=== PATIENT | female | born 1955 | race Caucasian/White ===

== ENCOUNTER → 2019-11-15 12:44 | Outpatient (CLI) | payer MEDICARE | END | disposition home or self-care (01) | LOC: D.RT 12:44 | PROVIDERS: ATTEND Internal Medicine Pulmonary Disease | DX: J44.9 Chronic obstructive pulmonary disease, unspecified (principal) ==

== ENCOUNTER → 2020-05-22 11:10 | Outpatient (CLI) | payer MEDICARE | END | disposition home or self-care (01) | LOC: D.CT 11:10 | PROVIDERS: ATTEND Internal Medicine Pulmonary Disease | DX: R91.8 Other nonspecific abnormal finding of lung field (principal) ==

== ENCOUNTER → 2020-12-12 10:25 | Outpatient (CLI) | payer MEDICARE | END | disposition home or self-care (01) | LOC: D.CT 12-05 11:00 | PROVIDERS: ATTEND Internal Medicine Pulmonary Disease | DX: R91.8 Other nonspecific abnormal finding of lung field (principal) ==

== ENCOUNTER 2021-02-04 08:18 | Day surgery (SDC) | payer MEDICARE ==
[~2021-02-04] VITALS: Ht 149.9 cm; Wt 67.7 kg
[2021-02-04 09:02] LABS: BASOPHILS 0.5 % (0-2); EOSINOPHILS 2.3 % (0-7); HEMATOCRIT 43.2 % (36.0-48.0); HEMOGLOBIN 14.9 g/dL (12-16); MCH 33.8 pg (26.0-34.0); MCHC 34.6 g/dL (31.0-37.0); MCV 97.7 fL (80.0-100.0); MEAN PLATELET VOLUME 7.4 fL (7.4-10.4); MONOCYTES 7.9 % (2-11); NEUTROPHILS 56.3 % (40-80); PLATELET COUNT 401 10x3/uL (130-400); RBC 4.43 10x6/uL (4.00-5.40); RDW 13.5 % (11.5-14.5); WBC 15.6 10x3/uL (4.8-10.8)
[2021-02-04 09:44] LABS: INR 1.06 (0.85-1.17); PROTIME 12.8 SECONDS (11.6-15.0)
[2021-02-04] MEDS ORDERED: ATROVENT 0.02%2.5 ML UPD (10:22)
[2021-02-04] MEDS ORDERED: SYMBICORT 16010.2 GM INH (10:22)
[2021-02-04] MEDS ORDERED: XOPENEX HFA15 GM INH (10:23)
[2021-02-04] MEDS ORDERED: SPIRIVA RESPIMAT4 GM INH (10:23)
[2021-02-04] MEDS ORDERED: TOPROL XL25 MG PO (10:24)
[2021-02-04] MEDS ORDERED: LEVOTHYROXINE88 MC1 PO (10:24)
[2021-02-04] MEDS ORDERED: VOLTAREN75 MG PO (10:25)
[2021-02-04] MEDS ORDERED: SINGULAIR10 MG PO (10:25)
[2021-02-04] MEDS ORDERED: PEPCID AC20 MG PO (10:26)
[2021-02-04] MEDS ORDERED: VESICARE5 MG PO (10:26)
[2021-02-04] MEDS ORDERED: PROMETRIUM200 MG PO (10:27)
[2021-02-04] MEDS ORDERED: CYMBALTA20 MG PO (10:27)
[2021-02-04] MEDS ORDERED: MIRAPEX0.125 MG PO (10:28)
[2021-02-04] MEDS ORDERED: ZOCOR40 MG PO (10:28)
[2021-02-04] MEDS ORDERED: MEDROL DOSE PACK4 MG PO (10:29)
[2021-02-04 10:42] VITALS: BP 133/61; Ht 149.9 cm; Wt 67.7 kg
--- NOTE | 2021-02-04 15:51 | NUR ---
1350 DR ALATORRE REVIEWED CXR REPORT AND IS AT PT BEDSIDE TO GIVE PT AN UPDATE. DR ALATORRE STATES THAT PT IS CLEARED TO BE DISCHARGED HOME. 1357 IV DC'D. CATHETER TIP INTACT. NO BLEEDING AT SITE. COBAN DRESSING APPLIED. 1400 DISCHARGE INSTRUCTIONS REVIEWED WITH PT WHO VOICES UNDERSTANDING OF THESE INSTRUCTION. PT VERBALIZES THAT SHE IS READY TO BE DISCHARGED.
[2021-02-06 13:59] LABS: ACID FAST SMEAR Negative (()); AFB SPECIMEN PROCESSING Concentration (()); AFB SPECIMEN PROCESSING Not Indicated (())
[2021-02-06 15:12] LABS: FUNGUS STAIN Final report (())
== END 2021-02-04 14:08 | disposition home or self-care (01) ==
LOC: D.OPS 08:18
PROVIDERS: ATTEND Internal Medicine Pulmonary Disease
DX: R91.8 Other nonspecific abnormal finding of lung field (principal); J98.8 Other specified respiratory disorders; J44.9 Chronic obstructive pulmonary disease, unspecified; F17.200 Nicotine dependence, unspecified, uncomplicated; R06.09 Other forms of dyspnea; K21.9 Gastro-esophageal reflux disease without esophagitis